=== PATIENT | female | born 2000 ===

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

== ENCOUNTER 2020-03-23 08:15 | Inpatient (IN) ==
[2020-03-23 08:45] LABS: Basophils % 0.2 % (0.0-0.8); Eosinophils # 0.1 10*3/uL (0.0-0.87); Eosinophils % 0.5 % (0.00-10.9); Hematocrit 34.9 VOL% (35.7-47.0); Hemoglobin 10.6 GM/DL (12.0-16.0); Immature Granulocytes % 1.2 %; Immature Granulocytes Absolute 0.15 #; Lymphocytes # 1.7 10*3/uL (1.4-4.0); Lymphocytes % 13.4 % (21.3-54.2); Mean Corpuscular HGB Conc 30.4 GM/DL (32-36); Mean Corpuscular Volume 70.8 FL (87-102); Mean Platelet Volume 11.2 FL (9.6-12.0); Monocytes % 5.3 % (1.7-12.7); NRBC # 0.09 10*3/uL; Neutrophils % 79.4 % (38.7-73.9); Platelet Count 388 T/CUMM (130-400); Red Blood Count 4.93 MC/CUMM (3.8-5.5); Red Cell Distribution Width 20.4 % (9.3-17.3); White Blood Count 12.5 T/CUMM (4-12)
[2020-03-23 09:02] LABS: INR 0.9; PT Patient Result 9.9 SECS (9.8-11.9)
[2020-03-23 09:03] LABS: Eosinophils 3 % (0-10); Hypochromasia 2+; Lymphocytes 16 % (20-55); Metamyelocytes 1 %; Microcytosis 1+; Nucleated Red Blood Cells 1 (0-5); Segmented Neutrophils 75 % (50-85); Total Cells Counted 100
[2020-03-23 09:04] LABS: Platelet Estimate Normal; Polychromasia Slight
[2020-03-23 09:05] LABS: Alanine Aminotransferase 20 U/L (13-56); Albumin 2.4 G/DL (3.4-5.0); Alkaline Phosphatase 254 U/L (45-117); Aspartate Amino Transferase 39 U/L (0-37); Bilirubin,Direct < 0.100 MG/DL (0.0-0.20); Bilirubin,Total < 0.39 MG/DL (0.2-1.0); Blood Urea Nitrogen 19 MG/DL (7-18); Calcium 8.8 MG/DL (8.5-10.1); Carbon Dioxide 17 MMOL/L (21-32); Estimated Glom Filtration Rate 122 ML/MIN; Glucose 89 MG/DL (74-106); Osmolality,Calculated 273.8 MOS/KG (273-304); Potassium 4.1 MMOL/L (3.5-5.1); Sodium 137 MMOL/L (136-145); Total Protein 8.1 G/DL (6.4-8.3); Uric Acid 6.9 MG/DL (2.6-6.0)
[2020-03-23] MEDS ORDERED: ceFAZolin 2,000 MG in PREMIX 1 EACH IV ONE (11:08)
[2020-03-23] MEDS ORDERED: FAMOTIDINE 20 MG/2 ML VIAL IV ONE (11:08)
[2020-03-23] MEDS ORDERED: CITRIC ACID/SODIUM CITRATE 30 ML UDCUP PO ONE (11:08)
[2020-03-23] MEDS ORDERED: LACTATED RINGERS 1,000 ML IV SCH ×2 (11:30→16:30)
[2020-03-23] MEDS ORDERED: OXYTOCIN/LR 30 UNIT/1,000 ML BAG IV ONE (11:48)
[2020-03-23] MEDS ORDERED: OXYTOCIN 10 UNIT/ML VIAL IM ONE (11:50)
[2020-03-23] MEDS ORDERED: NIFEdipine 10 MG CAPSULE PO ONE (12:27)
[2020-03-23] MEDS ORDERED: miSOPROStoL 200 MCG TABLET ONE (13:17)
[2020-03-23] MEDS ORDERED: CARBOPROST TROMETHAMINE 250 MCG/ML AMP IM ONE (13:18)
[2020-03-23] MEDS ORDERED: BUPIVACAINE SPINAL 0.75% 2 ML AMP SPINAL ONE (13:22)
[2020-03-23] MEDS ORDERED: MORPHINE 10 MG/10 ML VIAL ONE (13:22)
[2020-03-23] MEDS ORDERED: DEXAMETHASONE 4 MG/1 ML VIAL ONE (13:58)
[2020-03-23] MEDS ORDERED: ONDANSETRON 4 MG/2 ML VIAL ONE (13:58)
[2020-03-23] MEDS ORDERED: PHENYLEPHRINE 1 MG/10 ML SYRINGE IV ONE (13:58)
[2020-03-23] MEDS ORDERED: OXYTOCIN/LR 20 UNIT/1,000 ML BAG IV ONE ×2 (14:00→16:01)
[2020-03-23 14:09] LABS: Cord Arterial Blood HCO3 20.3 MMOL/L
[2020-03-23 14:11] LABS: Cord Venous Blood HCO3 21.4 MMOL/L; Cord Venous Blood PCO2 44.2 MMHG; Cord Venous Blood PO2 30.7
[2020-03-23 14:12] LABS: Bacteria,Urine Occasional /HPF (Few); Bilirubin,Urine Negative (Negative); Blood, Urine Negative (Negative); Glucose,Urine (UA) Negative (Negative); Ketones,Urine Negative (Negative); Mucus,Urine Occasional /LPF (Occasional); Nitrite,Urine Negative (Negative); Protein,Urine 100 MG/DL; RBC,Urine 1 /HPF (0-4); Squamous Epithelial Cell,Urine Occasional /HPF (0-10); Urine Appearance CLEAR (Clear); Urine Color Yellow (Yellow); Urine Specific Gravity 1.015 (1.001-1.035); Urine Urobilinogen < 2.0 EU/DL (0.2-1.0); WBC,Urine <1 /HPF (0-6)
[2020-03-23] MEDS ORDERED: propofoL 200 MG/20 ML VIAL IV ONE (14:14)
[2020-03-23] MEDS ORDERED: SIMETHICONE CHEW 80 MG TABLET PO PRN (16:01)
[2020-03-23] MEDS ORDERED: RHO(D) IMMUNE GLOBULIN 300 MCG SYRINGE IM ONE (16:01)
[2020-03-23] MEDS ORDERED: ONDANSETRON 4 MG/2 ML VIAL IV PRN (16:01)
[2020-03-23] MEDS ORDERED: ACETAMINOPHEN 325 MG TABLET PO PRN (16:01)
[2020-03-23] MEDS ORDERED: MAGNESIUM HYDROXIDE SUSP 30 ML UDCUP PO PRN (16:01)
[2020-03-23] MEDS ORDERED: diphenhydrAMINE 50 MG/1 ML VIAL IV PRN (16:45)
[2020-03-23] MEDS: DOCUSATE SODIUM 100 MG CAPSULE PO SCH (20:47)
[2020-03-23] MEDS ORDERED: diphenhydrAMINE CAP 25 MG CAPSULE PO PRN (21:06)
[2020-03-23 22:57] LABS: Basophils % 0.2 % (0.0-0.8); Hematocrit 27.3 VOL% (35.7-47.0); Hemoglobin 8.1 GM/DL (12.0-16.0); Immature Granulocytes % 0.8 %; Immature Granulocytes Absolute 0.12 #; Lymphocytes # 1.3 10*3/uL (1.4-4.0); Lymphocytes % 8.3 % (21.3-54.2); Mean Corpuscular HGB Conc 29.7 GM/DL (32-36); Mean Corpuscular Volume 71.3 FL (87-102); Mean Platelet Volume 11.6 FL (9.6-12.0); Monocytes % 6.1 % (1.7-12.7); NRBC # 0.02 10*3/uL; Neutrophils % 84.6 % (38.7-73.9); Platelet Count 347 T/CUMM (130-400); Red Blood Count 3.83 MC/CUMM (3.8-5.5); White Blood Count 15.5 T/CUMM (4-12)
[2020-03-24] MEDS: IBUPROFEN 800 MG TABLET PO PRN ×2 (04:32→14:30)
[2020-03-24 06:06] LABS: Basophils % 0.2 % (0.0-0.8); Eosinophils % 0.2 % (0.00-10.9); Hematocrit 25.5 VOL% (35.7-47.0); Hemoglobin 7.5 GM/DL (12.0-16.0); Immature Granulocytes % 0.5 %; Immature Granulocytes Absolute 0.06 #; Lymphocytes % 17.1 % (21.3-54.2); Mean Corpuscular HGB Conc 29.4 GM/DL (32-36); Mean Platelet Volume 11.3 FL (9.6-12.0); Monocytes % 6.6 % (1.7-12.7); Neutrophils % 75.4 % (38.7-73.9); Platelet Count 318 T/CUMM (130-400); Red Blood Count 3.54 MC/CUMM (3.8-5.5); Red Cell Distribution Width 19.9 % (9.3-17.3); White Blood Count 11.5 T/CUMM (4-12)
[2020-03-24] MEDS: MULTIVITAMIN (PRENATAL) TABLET PO SCH (09:33)
[2020-03-24] MEDS: DOCUSATE SODIUM 100 MG CAPSULE PO SCH ×2 (09:33→21:58)
[2020-03-24] MEDS: FERROUS SULFATE 325 MG TABLET PO SCH ×2 (09:33→21:58)
[2020-03-24] MEDS: METOCLOPRAMIDE 10 MG TABLET PO SCH ×2 (09:33→16:21)
[2020-03-24] MEDS ORDERED: SODIUM CHLORIDE 0.9% 1,000 ML IV PRN (09:45)
[2020-03-24 16:54] LABS: Hemoglobin 9.6 GM/DL (12.0-16.0)
[2020-03-25] MEDS: METOCLOPRAMIDE 10 MG TABLET PO SCH ×2 (01:27→08:57)
[2020-03-25 07:21] VITALS: BP 146/79
[2020-03-25] MEDS: DOCUSATE SODIUM 100 MG CAPSULE PO SCH (08:57)
[2020-03-25] MEDS: FERROUS SULFATE 325 MG TABLET PO SCH (08:57)
[2020-03-25] MEDS ORDERED: DIPH/TET/ACEL PERT BOOSTER VACCINE 0.5 ML VIAL IM ONE (10:12)
[2020-03-25] MEDS: MULTIVITAMIN (PRENATAL) TABLET PO SCH (10:27)
[2020-03-25] MEDS ORDERED: INFLUENZA VIRUS VACCINE 0.5 ML SYRINGE IM ONE ×2 (11:00→12:17)
== END 2020-03-25 11:15 | disposition home or self-care (01) | DRG 540 ==
LOC: N.LD 08:15 → N.OB 17:02
PROVIDERS: ADMIT Obstetrics & Gynecology; ATTEND Obstetrics & Gynecology
PROC: LDCSECT (ICD-10-PCS; 2020-03-23 14:00)

== ENCOUNTER 2021-10-19 11:23 | Inpatient (IN) ==
[2021-10-19 12:06] LABS: Mucus,Urine Occasional /LPF (Occasional); Squamous Epithelial Cell,Urine Few /HPF (0-10)
[2021-10-19 12:07] LABS: Bilirubin,Urine Negative (Negative); Blood, Urine Negative (Negative); Glucose,Urine (UA) Negative (Negative); Ketones,Urine Negative (Negative); Nitrite,Urine Negative (Negative); Protein,Urine 100 mg/dL (Negative); Urine Appearance Clear (Clear); Urine Color Yellow (Yellow); Urine Specific Gravity > 1.030 (1.001-1.035); Urine Urobilinogen 0.2 eU/dL (<2.0)
[2021-10-19 12:51] LABS: Basophils % 0.3 % (0.0-0.8); Eosinophils # 0.1 10*3/uL (0.0-0.87); Eosinophils % 0.7 % (0.00-10.9); Hematocrit 34.8 VOL% (35.7-47.0); Hemoglobin 10.9 GM/DL (12.0-16.0); Immature Granulocytes % 0.5 %; Immature Granulocytes Absolute 0.04 #; Lymphocytes # 1.3 10*3/uL (1.4-4.0); Lymphocytes % 17.4 % (21.3-54.2); Mean Corpuscular HGB Conc 31.3 GM/DL (32-36); Mean Platelet Volume 11.4 FL (9.6-12.0); Monocytes # 0.6 10*3/uL (0.11-0.8); Monocytes % 8.1 % (1.7-12.7); Platelet Count 277 T/CUMM (130-400); Red Blood Count 4.58 MC/CUMM (3.8-5.5); Red Cell Distribution Width 17.2 % (9.3-17.3); White Blood Count 7.5 T/CUMM (4-12)
[2021-10-19 13:05] LABS: INR 0.9; PT Patient Result 9.9 SECS (10.1-12.1); Partial Thromboplastin Time 28.9 SECS (23.7-32.9)
[2021-10-19 13:10] LABS: Alanine Aminotransferase 21 U/L (13-56); Albumin 2.2 G/DL (3.4-5.0); Alkaline Phosphatase 157 U/L (45-117); Aspartate Amino Transferase 27 U/L (0-37); Bilirubin,Direct < 0.050 MG/DL (0.0-0.20); Bilirubin,Total < 0.39 MG/DL (0.20-1.00); Blood Urea Nitrogen 11 MG/DL (7-18); Calcium 8.9 MG/DL (8.5-10.1); Carbon Dioxide 21 MMOL/L (21-32); Chloride 107 MMOL/L (98-107); Glucose 125 MG/DL (74-106); Osmolality,Calculated 269.1 MOS/KG (273-304); Potassium 3.5 MMOL/L (3.5-5.1); Sodium 135 MMOL/L (136-145); Uric Acid 7.9 MG/DL (2.6-6.0)
[2021-10-19] MEDS ORDERED: miSOPROStoL 200 MCG TABLET RECTAL PRN (13:14)
[2021-10-19] MEDS ORDERED: OXYTOCIN/LR 20 UNIT/1,000 ML BAG IV ONE (13:14)
[2021-10-19] MEDS ORDERED: ONDANSETRON 4 MG/2 ML VIAL IV PRN (13:14)
[2021-10-19] MEDS ORDERED: TRANEXAMIC ACID 1,000 MG in SODIUM CHLORIDE 0.9% 100 ML IV PRN (13:14)
[2021-10-19] MEDS ORDERED: METHYLERGONOVINE 0.2 MG/1 ML AMP IM PRN (13:14)
[2021-10-19] MEDS ORDERED: CARBOPROST TROMETHAMINE 250 MCG/ML AMP IM PRN (13:14)
[2021-10-19] MEDS ORDERED: OXYTOCIN/LR 30 UNIT/1,000 ML BAG IV ONE (13:18)
[2021-10-19] MEDS ORDERED: OXYTOCIN 10 UNIT/ML VIAL IM ONE (13:18)
[2021-10-19] MEDS: LABETALOL 200 MG TABLET PO SCH ×2 (13:35→20:57)
[2021-10-19 13:49] LABS: Protein/Creatinine Ratio,Urine 0.9 RATIO
[2021-10-19] MEDS ORDERED: FAMOTIDINE 20 MG/2 ML VIAL IV ONE (17:58)
[2021-10-19] MEDS ORDERED: CITRIC ACID/SODIUM CITRATE 30 ML UDCUP PO ONE (17:58)
[2021-10-19] MEDS ORDERED: ceFAZolin 3,000 MG in SYRINGE 1 EACH IV ONE (17:58)
[2021-10-20] MEDS ORDERED: NIFEdipine 10 MG CAPSULE PO ONE (01:00)
[2021-10-20 04:58] LABS: Basophils % 0.4 % (0.0-0.8); Eosinophils % 0.5 % (0.00-10.9); Hematocrit 35.1 VOL% (35.7-47.0); Hemoglobin 11.1 GM/DL (12.0-16.0); Immature Granulocytes % 0.7 %; Immature Granulocytes Absolute 0.05 #; Lymphocytes # 1.5 10*3/uL (1.4-4.0); Lymphocytes % 19.6 % (21.3-54.2); Mean Corpuscular HGB Conc 31.6 GM/DL (32-36); Mean Corpuscular Volume 76.8 FL (87-102); Mean Platelet Volume 11.4 FL (9.6-12.0); Monocytes # 0.5 10*3/uL (0.11-0.8); Monocytes % 5.9 % (1.7-12.7); Neutrophils % 72.9 % (38.7-73.9); Platelet Count 255 T/CUMM (130-400); Red Blood Count 4.57 MC/CUMM (3.8-5.5); Red Cell Distribution Width 17.3 % (9.3-17.3); White Blood Count 7.7 T/CUMM (4-12)
[2021-10-20 05:27] LABS: Alanine Aminotransferase 20 U/L (13-56); Albumin 2.2 G/DL (3.4-5.0); Alkaline Phosphatase 146 U/L (45-117); Aspartate Amino Transferase 32 U/L (0-37); Bilirubin,Total < 0.39 MG/DL (0.20-1.00); Blood Urea Nitrogen 9 MG/DL (7-18); Carbon Dioxide 21 MMOL/L (21-32); Chloride 107 MMOL/L (98-107); Glucose 73 MG/DL (74-106); Osmolality,Calculated 272.7 MOS/KG (273-304); Potassium 3.8 MMOL/L (3.5-5.1); Sodium 138 MMOL/L (136-145); Total Protein 6.9 G/DL (6.4-8.2)
[2021-10-20] MEDS ORDERED: CITRIC ACID/SODIUM CITRATE 30 ML UDCUP PO ONE (06:00)
[2021-10-20] MEDS ORDERED: FAMOTIDINE 20 MG/2 ML VIAL IV ONE (06:00)
[2021-10-20] MEDS ORDERED: miSOPROStoL 200 MCG TABLET ONE (07:20)
[2021-10-20] MEDS ORDERED: TRANEXAMIC ACID 1,000 MG/10 ML VIAL ONE (07:20)
[2021-10-20] MEDS ORDERED: SODIUM CHLORIDE 0.9% 0 ML IV ONE (07:21)
[2021-10-20] MEDS ORDERED: CARBOPROST TROMETHAMINE 250 MCG/ML AMP IM ONE (07:22)
[2021-10-20] MEDS ORDERED: OXYTOCIN 10 UNIT/ML VIAL IM ONE (07:25)
[2021-10-20] MEDS ORDERED: OXYTOCIN/LR 30 UNIT/1,000 ML BAG IV ONE (07:27)
[2021-10-20] MEDS: LACTATED RINGERS 1,000 ML IV SCH ×2 (07:45→12:51)
[2021-10-20] MEDS: LABETALOL 200 MG TABLET PO SCH (09:17)
[2021-10-20] MEDS ORDERED: ONDANSETRON 4 MG/2 ML VIAL ONE (13:31)
[2021-10-20] MEDS ORDERED: BUPIVACAINE SPINAL 0.75% 2 ML AMP SPINAL ONE (13:31)
[2021-10-20] MEDS ORDERED: buprenorphine HCL 0.3 MG/ML VIAL ONE (13:31)
[2021-10-20] MEDS ORDERED: KETOROLAC 30 MG/1 ML VIAL ONE (14:04)
[2021-10-20] MEDS ORDERED: PHENYLEPHRINE 1 MG/10 ML SYRINGE IV ONE (14:04)
[2021-10-20] MEDS ORDERED: MIDAZOLAM 2 MG/2 ML VIAL ONE (14:14)
[2021-10-20 14:30] LABS: Cord Arterial Blood HCO3 21.5 MMOL/L; Cord Venous Blood HCO3 22.8 MMOL/L; Cord Venous Blood PCO2 47.3 MMHG; Cord Venous Blood PO2 35.7
[2021-10-20 14:41] LABS: Glucose,Urine (UA) Negative (Negative); Ketones,Urine Negative (Negative); Protein,Urine Trace mg/dL (Negative); Urine Appearance Clear (Clear); Urine Color Yellow (Yellow); Urine Specific Gravity 1.015 (1.001-1.035); Urine pH 6.5 (4.5-8.0)
[2021-10-20 14:42] LABS: Bilirubin,Urine Negative (Negative); Blood, Urine Negative (Negative); Nitrite,Urine Negative (Negative); Urine Urobilinogen 0.2 eU/dL (<2.0)
[2021-10-20 14:43] LABS: RBC,Urine 1 /HPF (0-4); Squamous Epithelial Cell,Urine Occasional /HPF (0-10)
[2021-10-20] MEDS ORDERED: OXYTOCIN/LR 20 UNIT/1,000 ML BAG IV ONE (15:56)
[2021-10-20] MEDS ORDERED: RHO(D) IMMUNE GLOBULIN 300 MCG SYRINGE IM ONE (15:56)
[2021-10-20] MEDS ORDERED: ACETAMINOPHEN 325 MG TABLET PO PRN (15:56)
[2021-10-20] MEDS ORDERED: ONDANSETRON 4 MG/2 ML VIAL IV PRN (15:56)
[2021-10-20] MEDS ORDERED: MAGNESIUM HYDROXIDE SUSP 30 ML UDCUP PO PRN (15:56)
[2021-10-20] MEDS ORDERED: IBUPROFEN 800 MG TABLET PO PRN (15:56)
[2021-10-20] MEDS ORDERED: SIMETHICONE CHEW 80 MG TABLET PO PRN (15:56)
[2021-10-20] MEDS ORDERED: LACTATED RINGERS 1,000 ML IV SCH (16:00)
[2021-10-20] MEDS ORDERED: diphenhydrAMINE CAP 50 MG CAPSULE PO ONE (16:31)
[2021-10-20] MEDS ORDERED: diphenhydrAMINE CAP 25 MG CAPSULE PO ONE (17:00)
[2021-10-20] MEDS: ACETAMINOPHEN 500 MG TABLET PO SCH (18:11)
[2021-10-20] MEDS: DOCUSATE SODIUM 100 MG CAPSULE PO SCH (20:59)
[2021-10-20] MEDS: KETOROLAC 30 MG/1 ML VIAL IV SCH (22:31)
[2021-10-20 23:05] LABS: Basophils % 0.3 % (0.0-0.8); Eosinophils % 0.4 % (0.00-10.9); Hematocrit 31.7 VOL% (35.7-47.0); Immature Granulocytes % 0.4 %; Immature Granulocytes Absolute 0.04 #; Lymphocytes # 1.4 10*3/uL (1.4-4.0); Lymphocytes % 15.2 % (21.3-54.2); Mean Corpuscular HGB Conc 31.5 GM/DL (32-36); Mean Platelet Volume 11.2 FL (9.6-12.0); Monocytes # 0.5 10*3/uL (0.11-0.8); Monocytes % 4.9 % (1.7-12.7); Neutrophils % 78.8 % (38.7-73.9); Platelet Count 209 T/CUMM (130-400); Red Blood Count 4.17 MC/CUMM (3.8-5.5); Red Cell Distribution Width 17.1 % (9.3-17.3); White Blood Count 9.2 T/CUMM (4-12)
[2021-10-20] MEDS: ceFAZolin 2,000 MG/50 ML DUPLEX IV SCH (23:40)
[2021-10-21] MEDS: ACETAMINOPHEN 500 MG TABLET PO SCH ×2 (00:08→06:49)
[2021-10-21] MEDS: KETOROLAC 30 MG/1 ML VIAL IV SCH (03:44)
[2021-10-21 06:33] LABS: Basophils % 0.3 % (0.0-0.8); Eosinophils # 0.1 10*3/uL (0.0-0.87); Eosinophils % 1.1 % (0.00-10.9); Hematocrit 31.2 VOL% (35.7-47.0); Hemoglobin 9.8 GM/DL (12.0-16.0); Immature Granulocytes % 0.6 %; Immature Granulocytes Absolute 0.04 #; Lymphocytes # 1.3 10*3/uL (1.4-4.0); Lymphocytes % 18.1 % (21.3-54.2); Mean Corpuscular HGB Conc 31.4 GM/DL (32-36); Mean Corpuscular Volume 75.5 FL (87-102); Mean Platelet Volume 10.7 FL (9.6-12.0); Monocytes # 0.5 10*3/uL (0.11-0.8); Monocytes % 6.4 % (1.7-12.7); Neutrophils % 73.5 % (38.7-73.9); Platelet Count 200 T/CUMM (130-400); Red Blood Count 4.13 MC/CUMM (3.8-5.5); Red Cell Distribution Width 17.1 % (9.3-17.3); White Blood Count 7.1 T/CUMM (4-12)
[2021-10-21] MEDS: ceFAZolin 2,000 MG/50 ML DUPLEX IV SCH (08:22)
[2021-10-21] MEDS: DOCUSATE SODIUM 100 MG CAPSULE PO SCH (08:25)
[2021-10-21] MEDS: MULTIVITAMIN (PRENATAL) TABLET PO SCH (08:26)
[2021-10-21] MEDS: METOCLOPRAMIDE 10 MG TABLET PO SCH ×2 (08:37→16:15)
[2021-10-21] MEDS ORDERED: BISACODYL 10 MG SUPP RECTAL PRN (17:34)
[2021-10-21] MEDS ORDERED: PROMETHAZINE 25 MG/1 ML VIAL IM ONE (17:37)
[2021-10-21] MEDS ORDERED: MEPERIDINE 50 MG/1 ML VIAL IV ONE (17:37)
[2021-10-22] MEDS: DOCUSATE SODIUM 100 MG CAPSULE PO SCH ×3 (07:49→21:42)
[2021-10-22] MEDS: MULTIVITAMIN (PRENATAL) TABLET PO SCH (09:01)
[2021-10-23] MEDS: DOCUSATE SODIUM 100 MG CAPSULE PO SCH (09:23)
[2021-10-23] MEDS: MULTIVITAMIN (PRENATAL) TABLET PO SCH (09:23)
[2021-10-23 18:33] VITALS: BP 144/76
== END 2021-10-23 15:10 | disposition home or self-care (01) | DRG 540 ==
LOC: N.LDOUT 11:23 → N.LD 11:32 → N.OB 10-20 18:00
PROVIDERS: ADMIT Obstetrics & Gynecology; ATTEND Obstetrics & Gynecology
PROC: LDCSECT (ICD-10-PCS; 2021-10-20 13:30)